=== PATIENT | male | born 1970 | race Hispanic/Latino ===

== ENCOUNTER 2016-03-08 13:49 | Observation (INO) | payer OTHER ==
[~2016-03-08] VITALS: Ht 172.7 cm; Wt 122.5 kg
--- NOTE | 2016-03-08 13:36 | ED CARDIAC/CP/PALPITATIONS ---
History of Present Illness General Chief Complaint: Chest Pain Stated Complaint: CHEST PRESSURE Source: patient, family Exam Limitations: no limitations Vital Signs & Intake/Output Vital Signs & Intake/Output ED Intake and Output 03/10 0000 03/09 1200 Intake Total 60 Output Total Balance 60 Intake, IV 10 Intake, Oral 50 Allergies Coded Allergies: No Known Allergies (03/08/16) Triage Nurses Notes Reviewed? yes Onset: Abrupt Duration: constant Timing: single episode today Quality/Severity: moderate Location: substernal Radiation: no radiation Activities at Onset: none Prior Chest Pain/Card Workup: no prior chest pain, no prior cardiac workup HPI: Patient is a 45-year-old male who currently takes Klonopin to sleep who presents emergency in stating that patient woke up this morning stood up out of bed suddenly became dizzy in which she had acute onset of chest tightness shortness of breath and persistent lightheaded sensation. Patient was brought in by ambulance for 6 hours of persistent chest tightness which patient states that he feels as if he cannot take a deep breath. 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 Denies any fever, chills, headache, arm pain jaw pain nausea vomiting hemoptysis cough leg swelling. Denies any history of PE DVT denies any history of cancer recent travel recent surgery (SANDHYA FIELDS) Reconcile Medications Aspirin (Aspirin*) 81 MG TAB.CHEW 1 TAB PO DAILY HEART HEALTH Clonazepam 1 MG TABLET 1 TAB PO TIDPRN DIRECTED (Reported) (HIPOLITO AVILA,KAHLIL) Past History Travel History Traveled to [place] past 21 day No Medical History Any Pertinent Medical History? see below for history Surgical History Surgical History: non-contributory Family History Hx Contributory? No (SANDHYA FIELDS) Review of Systems Review of Systems Constitutional: Reports: no symptoms. EENTM: Reports: no symptoms. Respiratory: Reports: see HPI, short of breath. Cardiovascular: Reports: see HPI. GI: Reports: no symptoms. Genitourinary: Reports: no symptoms. Musculoskeletal: Reports: no symptoms. Skin: Reports: no symptoms. Neurological/Psychological: Reports: no symptoms. Hematologic/Endocrine: Reports: no symptoms. Immunologic/Allergic: Reports: no symptoms. All Other Systems: Reviewed and Negative (SANDHYA FIELDS) Physical Exam Physical Exam General Appearance: no apparent distress, alert, comfortable Cardiovascular: regular rate/rhythm Comments: Well-developed well-nourished person in no acute distress HEENT: Normal EENT exam, extraocular motion intact, no nystagmus. Pupils equally round and reactive to light and accommodation. Nose is atraumatic. External auditory canal and Tympanic membranes clear. Pharynx normal. No swelling or edema. Neck: Supple, no lymphadenopathy, normal range of motion without pain or tenderness Back: Nontender, no CVA tenderness. Cardiovascular: Regular rate and rhythms no murmurs rubs or gallops, normal JVP Respiratory: Chest nontender. No respiratory distress.breath sounds clear to auscultation bilaterally Abdomen: Soft, nontender nondistended, no appreciable organomegaly. Normal bowel sounds. No ascites Extremity: No edema, no calf tenderness to palpation, normal and equal pulses. Neuro: Alert oriented x3, motor sensory normal, cranial nerves II through XII grossly intact. Skin: No appreciable rash on exposed skin, skin is warm and dry. Psych: Mood and affect is normal, memory and judgment is normal. Core Measures ACS in differential dx? No Severe Sepsis Present: No Septic Shock Present: No (SANDHYA FIELDS) Progress Differential Diagnosis: AMI, aortic dissection, atrial fibrillation, cholecystitis, CHF/pulm edema, costochondritis, hyperkalemia, hypovolemia, hyperthyroid, hyperventilation, intracranial hemorrhage, musculoskeletal pain, myocarditis, pancreatitis, pericarditis, pneumonia, pneumothorax, PSVT, pulmonary embolism, PUD/GERD, PVCs/PACs, respiratory failure, rib fracture, sepsis, unstable angina, V-fib/V-Tach, WPW syndrome Plan of Care: Orders Procedure Date/time Status Heart Healthy Diet 03/09 B Active MAGNESIUM 03/09 06 Active BASIC ELECTROLYTES PLUS BUN&CR 03/09 06 Active Heart Healthy Diet 03/08 D Complete TROPONIN LEVEL 03/08 1999 Active Teach/Educate 03/08 1849 Active Nutritional Intake, Monitor 03/08 1849 Active Isolation 03/08 1849 Active Patient Care Conference 03/08 1849 Active Activity/Ambulation 03/08 1849 Active Vital Signs 03/08 1832 Active Saline Lock 03/08 1713 Active Pathway - chart 03/08 171 Active House Staff 03/08 1713 Active Patient Data 03/[address] in observation 03/08 1625 Active Code Status 03/08 1625 Active Telemetry/Movie Writer 03/08 1355 Active Intake & Output 03/08 1355 Active THYROID STIMULATING HORMONE 03/08 1355 Complete TROPONIN LEVEL 03/08 1355 Complete MAGNESIUM 03/08 1355 Complete FREE T4 03/08 1355 Complete COMPREHENSIVE METABOLIC PANEL 03/08 1355 Complete CBC WITHOUT DIFFERENTIAL 03/08 1355 Complete EKG 03/08 1319 Active VTE Mechanical Prophylaxis 03/08 UNK Active Heat/Cold Therapy 03/08 UNK Active EKG 03/08 UNK Active ECHOCARDIOGRAM 03/08 UNK Active Current Medications Sig/Karsten Start time Last Medication Dose Stop Time Status Admin Docusate Sodium 100 MG BID 03/08 2200 AC (Colace) Polyethylene Glycol 17 GM AT BEDTIME 03/08 2200 AC (Miralax) Senna/Docusate Sodium 1 TAB AT BEDTIME 03/08 2200 AC (Senokot S) Acetaminophen 650 MG Q6P PRN 03/08 1715 AC (Tylenol) Acetaminophen/ 1 TAB Q6P PRN 03/08 1715 AC Hydrocodone Bitart (Vicodin) Diphenhydramine HCl 25 MG Q6P PRN 03/08 1715 AC (Benadryl) Hydromorphone HCl 0.5 MG Q4P PRN 03/08 1715 AC (Dilaudid) Ondansetron HCl 4 MG Q6P PRN 03/08 1715 AC (Zofran) Aspirin 81 MG DAILY 03/08 171 AC (Aspirin) Laboratory Tests 03/08/16 1357: Anion Gap 12, Estimated GFR > 60, BUN/Creatinine Ratio 15.0, Glucose 105 H, Calcium 9.3, Magnesium 1.7, Total Bilirubin 0.4, AST 19, ALT 45, Alkaline Phosphatase 56, Troponin I < 0.01, Total Protein 6.8, Albumin 3.9, Globulin 2.9, Albumin/Globulin Ratio 1.3, TSH 1.880, Free T4 1.08, CBC w Diff NO MAN DIFF REQ, RBC 5.10, MCV 84.4, MCH 29.1, RDW 12.7, MPV 10.1, Gran % 65.4, Lymphocytes % 23.6, Monocytes % 8.3, Eosinophils % 2.0, Basophils % 0.7, Absolute Granulocytes 5.6, Absolute Lymphocytes 2.0, Absolute Monocytes 0.7 H, Absolute Eosinophils 0.2, Absolute Basophils 0.1, PUBS MCHC 34.5 Patient currently is in no apparent distress PERC was scored 0 essentially ruling out pulmonary embolism. Patient was given 325 of aspirin by EMS. Patient will be given nitroglycerin and reevaluated for concerns of angina Orthostatics were measured by nursing staff and noted to me to be negative 03/08/2016 2:27:58 PM-nursing staff does state to me that after 1 tablet of nitroglycerin patient had complete resolution of pain from 5 out of 10 TO NOW 0 out of 10 03/08/2016 3:19:48 PM reevaluation the patient he still had complete resolution of his chest tightness however still complained of dizziness nursing staff does state to me that patient did complain of room spinning sensation was meclizine and scopolamine and normal saline bolus was ordered. Patient does have concerns of angina in which I discussed disposition of admission with Dr. MCMILLAN also evaluate the patient and we will discuss admission with cardiology Patient was made aware of his plan and agrees (MOLLY LIND,SANDHYA) Diagnostic Imaging: Viewed by Me: Radiology Read. CXR Impression: no acute abnormality, no infiltrates Initial ED EKG: SINUS RHYTHM NOTED 74 BPM WITH t-WAVE INVERSIONS NOTED IN LEAD 3 , PEAK t WAVES NOTED IN v2 Comments: PATIENT: DEE DEE ALEX PRESENT AGE: 45 PATIENT ACCOUNT NO: [id number] : 72 LOCATION: [facility] ORDERING PHYSICIAN: SANDHYA LIND SERVICE DATE: 03/08/16 EXAM TYPE: RAD - XRY-CHEST XRAY, PA AND LATERAL EXAMINATION: XR CHEST CLINICAL INFORMATION: 45-year-old with tightness in the chest. COMPARISON: None. TECHNIQUE: PA and lateral views of the chest were obtained. FINDINGS: No significant abnormality is noted involving the heart, lungs, mediastinum, bony thorax, or soft tissues. IMPRESSION: Unremarkable examination. (SANDHYA FIELDS) Departure Departure Disposition: STILL A PATIENT Condition: Stable Clinical Impression Primary Impression: Angina at rest Secondary Impressions: Dizziness Referred to [facility] as new patient No Departure Forms: Customer Survey General Discharge Information Observation Note Spoke With: JEANA MULLEN MD Physician Advisor Notified: ALFREDITO AVILA,VLADISLAV Espinoza Place Patient In: Non-ED OBS Care Area Rationale for Observation: My rational for observation is as follows . Dr. Mullen ACCEPTED the patient for telemetry observation which patient has concerns of rule out ACS, patient requires cardiology consultation, repeat labs, possible stress test, repeat cardiac enzymes telemetry monitoring outpatient treatment at this time due to complete resolution of chest pain after nitroglycerin would be medically harmful (SANDHYA FIELDS) Departure Prescriptions: Current Visit Scripts Aspirin (Aspirin*) 1 TAB PO DAILY #30 TAB PA/DEFENSE TRAVEL ADMINISTRATOR Co-Sign Statement Statement: ED Attending supervision documentation- [] I saw and evaluated the patient. I have also reviewed all the pertinent lab results and diagnostic results. I agree with the findings and the plan of care as documented in the PA's/DEFENSE TRAVEL ADMINISTRATOR's documentation. [X] I have reviewed the ED Record and agree with the PA's/DEFENSE TRAVEL ADMINISTRATOR's documentation. [] Additions or exceptions (if any) to the PAs/DEFENSE TRAVEL ADMINISTRATOR's note and plan are summarized below: [] (HIPOLITO AVILA,KAHLIL) Critical Care Note Critical Care Note Critical Care Time: 30-74 min (SANDHYA FIELDS)
[2016-03-08 14:20] LABS: ABSOLUTE BASOPHIL COUNT 0.1 /CUMM (0.0-0.2); ABSOLUTE EOSINOPHIL COUNT 0.2 /CUMM (0.0-0.7); ABSOLUTE GRANULOCYTE CT 5.6 /CUMM (1.4-6.5); ABSOLUTE MONOCYTE COUNT 0.7 /CUMM (0.10-0.60); BASOPHIL % 0.7 % (0.0-2.0); GRANULOCYTE % 65.4 % (42.2-75.2); MEAN CORPUSCULAR HGB 29.1 PG (27.0-31.0); MEAN CORPUSCULAR HGB CONC 34.5 G/DL (33.0-37.0); MEAN CORPUSCULAR VOLUME 84.4 FL (80.0-94.0); MEAN PLATELET VOLUME 10.1 FL (7.4-10.4); PLATELET COUNT 184 /CUMM (130-400); RBC DISTRIBUTION WIDTH 12.7 % (11.5-14.5); WHITE BLOOD CELL COUNT 8.5 /CUMM (4.8-10.8)
--- NOTE | 2016-03-08 14:41 | RADIOLOGY REPORT ---
EXAMINATION: XR CHEST CLINICAL INFORMATION: 45-year-old with tightness in the chest. COMPARISON: None. TECHNIQUE: PA and lateral views of the chest were obtained. FINDINGS: No significant abnormality is noted involving the heart, lungs, mediastinum, bony thorax, or soft tissues. IMPRESSION: Unremarkable examination.
--- NOTE | 2016-03-08 17:03 | History & Physical ---
DEEPTI BROWN 03/08/16 1702: General Information and HPI MD Statement: I have seen and personally examined DEE DEE ALEX and documented this H&P. The patient is a 45 year old M who presented with a patient stated chief complaint of chest pain and dizziness since morning. Source of Information: patient Exam Limitations: no limitations History of Present Illness: This is a 45-year-old gentleman with no significant past medical history presented to [place] emergency department this afternoon with chief complaint of chest pain and dizziness for 6 hours. According to the patient, he felt dizzy this morning after waking up. Dizziness associated with lightheadedness and he felt like losing balance. Denied any spinning sensation, nausea, vomiting. Denied any syncopal episode. Denied any loss of consciousness or blackout episodes. He also reported chest pain started around 8:00 in the morning which is constant , substernal pressure, 4/10, chest tightness, nonradiating to arm or shoulder. Chest pain is associated with shortness of breath and lightheadedness. However he denied any loss of consciousness, sweating, diaphoresis, racing of heart. No prior history of chest pain, no prior history of heart attacks or stroke. Chest pain was relieved with nitroglycerin in the emergency room. He denied any fever, chills, sick contacts or travel history, cough, sputum production, headache, weakness or sensory changes, numbness or tingling sensation. He denied any nausea, vomiting, abdominal pain, change in bladder or bowel habits. he denied any leg swelling. No significant past medical history except for using Klonopin at nighttime for sleep. Denied any allergies. Denies any smoking, alcohol intake, illicit drug abuse. No significant family history for cardiac events. No hypertension or diabetes in the family. He follows Dr. Pineda primary care doctor. 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 EENTM: Denies: double vision, hearing changes. Cardiovascular: Reports: chest pain. Denies: edema, orthopena, palpitations, peripheral edema, syncope. Respiratory: Denies: cough, hemoptysis, orthopnea, short of breath, sputum production, stridor, wheezing. GI: Denies: abdominal pain, bloating, constipation, diarrhea, nausea, bloody stool, changes in stool, vomiting. Genitourinary: Denies: dysuria, frequency, hematuria, hesitation, nocturia. Musculoskeletal: Denies: back pain, joint pain. Skin: Denies: rash. Neurological/Psychological: Denies: ataxia, confusion, depressed, emotional problems, headache, numbness, paresthesia, tingling, tremors. Exam & Diagnostic Data Last 24 Hrs of Vital Signs/I&O Vital Signs Date Time Temp Pulse Resp B/P Pulse O2 O2 Flow FiO2 Ox Delivery Rate 03/08 1833 97.8 60 20 120/80 95 03/08 1754 97.8 70 16 127/72 97 Room Air 03/08 1415 74 16 122/58 99 Nasal 2.0L Cannula 03/08 1350 97 Room Air 03/08 1321 96.4 76 16 145/83 97 Room Air Intake & Output 03/08 1600 03/08 0800 03/08 0000 Intake Total 0 Output Total Balance 0 Intake, Oral 0 Patient 122.47 kg Weight Physical Exam General Appearance Alert, Oriented X3, Cooperative, No Acute Distress Skin No Rashes, No Breakdown HEENT Atraumatic, PERRLA, Mucous Membr. moist/pink Neck Supple, No JVD Lymphatic Axillary nl, Cervical nl Cardiovascular Regular Rate, Normal S1, Normal S2, No Murmurs Lungs Normal Air Movement Abdomen Normal Bowel Sounds, Soft, No Tenderness Neurological Normal Speech, Strength at 5/5 X4 Ext, Normal Tone, Sensation Intact, Cranial Nerves 3-12 NL Extremities No Clubbing, No Cyanosis, No Edema Vascular Normal Pulses, Pulses Symmetrical Last 24 Hrs of Labs/Raz: Laboratory Tests 03/08/16 2002: Troponin I < 0.01 03/08/16 1357: Anion Gap 12, Estimated GFR > 60, BUN/Creatinine Ratio 15.0, Glucose 105 H, Calcium 9.3, Magnesium 1.7, Total Bilirubin 0.4, AST 19, ALT 45, Alkaline Phosphatase 56, Troponin I < 0.01, Total Protein 6.8, Albumin 3.9, Globulin 2.9, Albumin/Globulin Ratio 1.3, TSH 1.880, Free T4 1.08, CBC w Diff NO MAN DIFF REQ, RBC 5.10, MCV 84.4, MCH 29.1, RDW 12.7, MPV 10.1, Gran % 65.4, Lymphocytes % 23.6, Monocytes % 8.3, Eosinophils % 2.0, Basophils % 0.7, Absolute Granulocytes 5.6, Absolute Lymphocytes 2.0, Absolute Monocytes 0.7 H, Absolute Eosinophils 0.2, Absolute Basophils 0.1, PUBS MCHC 34.5 Diagnostic Data EKG Results Sinus rhythm, rate 74, T wave inversion in lead 3. QTC 413, no acute ST-T wave changes suggestive of ischemia CXR Results Chest x-ray clear Assessment/Plan Assessment: This is a 45-year-old gentleman with no significant past medical history presented to [place] emergency department this afternoon with chief complaint of chest pain and dizziness for 6 hours. He reported chest pain started around 8:00 in the morning which is constant, substernal pressure, 4/10, chest tightness, nonradiating to arm or shoulder. Chest pain is associated with shortness of breath and lightheadedness. Vitals on admission temperature 96.4, heart rate 76, blood pressure 145/83, respiratory rate 16, saturating at 97% on room air. Pertinent labs CBC and BEP with normal. Troponins negative on admission. Thyroid function tests were normal. Chest x-ray was clear. EKG sinus rhythm, rate 74, T wave inversions in V3, QTc interval 413, no acute ST-T wave changes suggestive of ischemia. Patient was given sublingual nitroglycerin in the emergency room and meclizine for dizziness. Problem list 1. Chest pain-rule out acute coronary syndrome 2. Dizziness Chest pain Patient presented with chest pain, substernal, 5/10, chest tightness, nonradiating, lasted for 6 hours, associated with shortness of breath and lightheadedness. Denied any racing of heart, sweating, diaphoresis. Relieved with nitroglycerin in the emergency room. Of note patient has no prior history of chest pain or heart attack in the past. * Admitted to telemetry floor for further monitoring * Monitor vitals every shift * Will rule out acute coronary syndrome * First set of troponins and EKG was negative * Serial EKGs and troponins * Range Conservationist on board * Will follow cardiology recommendations * Started on baby aspirin 81 mg daily * Mild pain pathway Tylenol * Moderate pain pathway Dilaudid * Nitroglycerin for chest pain * follow up echocardiogram * Patient is under 24-hour observation 2. Dizziness Patient complained of chest pain which is associated with the dizziness and lightheadedness. Denied any loss of consciousness, syncopal episodes. Denied any seizures or focal neurological deficits. Denied any ringing sensation, spinning sensation of the room. * Admitted to telemetry for continuous monitoring. * Closely monitor for any arrhythmias * Fall precautions * When necessary meclizine for dizziness. * When necessary zofran For Nausea. * Closely observe for 24 more hours. Patient is full code DVT prophylaxis-alps Regular diet Mild pain pathway Tylenol As Ranked By This Provider Problem List: 1. Angina at rest 2. Dizziness Core Measures/Miscellaneous Acute Coronary Syndrome ACS Diagnosis: No Cerebrovascular Accident CVA/TIA Diagnosis: No Congestive Heart Failure CHF Diagnosis: No Venous Thromboembolism VTE Risk Factors: Acute medical illness, Age > 40, Obesity VTE Prophylaxis Ordered Inpt: Mechanical (ALPS/TEDS) No Mech VTE prophylaxis d/t: No contraindications No VTE Pharm Prophylaxis d/t: No contraindications VTE Diagnosis: No VTE Type: NONE VTE Confirmed by (Test): NONE Severe Sepsis Severe Sepsis Present: No Septic Shock Septic Shock Present: No Miscellaneous Documentation Attending Case Discussed With: JEANA MULLEN MD Primary Care Physician: PATIENT HAS NO PRIMARY CARE DR Patient sees these Specialists none Level of Patient Care: Telemetry JEANA MULLEN MD 03/08/16 1646: General Information and HPI Allergies/Medications Home Med list Aspirin (Aspirin*) 81 MG TAB.CHEW 1 TAB PO DAILY HEART HEALTH Clonazepam 1 MG TABLET 1 TAB PO TIDPRN DIRECTED (Reported) Attending Review Statement Attending Statement Attending Statement: examined this patient, discuss w/resident/PA/CATERING DIRECTOR, agreed w/resident/PA/CATERING DIRECTOR, discussed with family, reviewed EMR data (avail), discussed with nursing, reviewed images, amended to note Attending Assessment/Plan: Agree with house staff notes. The patient is a 45-year-old male with no significant past medical history presenting with chest discomfort and dizziness x6 hours. He felt dizzy in the morning admission upon waking up. No syncope. The chest discomfort began 8:00 a.m., and was a substernal pressure which was a 4/10. This was associated with lightheadedness and dizziness. Review of systems: No fever. No chills. No rash. No tremor. No melena. All other systems are reviewed and noted to be negative. Gen: The patient is in no acute distress HEENT: Normal nose, ears, and oropharynx. Pupils equal bilaterally. Conjunctiva normal. Neck: Supple with no JVD, no masses, and no thyromegaly Lungs: Clear to auscultation with normal respiratory effort Heart: RRR, S1, S2, no murmurs. No peripheral edema, 2+ pulses in the lower extremities bilaterally Abdomen: Soft, nontender, no masses. No hepatomegaly. No splenomegaly Extremities: No clubbing or cyanosis. Normal muscle strength in the upper and lower extremities. Skin: Normal skin turgor with no skin ulcers or lesions noted. Neuro: Cranial nerves intact. Sensation intact Psych: Alert and oriented 3 with appropriate affect Labs: 03/08/16 2002: Troponin I < 0.01 03/08/16 1357: Anion Gap 12, Estimated GFR > 60, BUN/Creatinine Ratio 15.0, Glucose 105 H, Calcium 9.3, Magnesium 1.7, Total Bilirubin 0.4, AST 19, ALT 45, Alkaline Phosphatase 56, Troponin I < 0.01, Total Protein 6.8, Albumin 3.9, Globulin 2.9, Albumin/Globulin Ratio 1.3, TSH 1.880, Free T4 1.08, CBC w Diff NO MAN DIFF REQ, RBC 5.10, MCV 84.4, MCH 29.1, RDW 12.7, MPV 10.1, Gran % 65.4, Lymphocytes % 23.6, Monocytes % 8.3, Eosinophils % 2.0, Basophils % 0.7, Absolute Granulocytes 5.6, Absolute Lymphocytes 2.0, Absolute Monocytes 0.7 H, Absolute Eosinophils 0.2, Absolute Basophils 0.1, PUBS MCHC 34.5 EKG tracing is independently reviewed, and reveals normal sinus rhythm at 74 with nonspecific T-wave abnormality chest x-ray: Negative Assessment: 1. Chest pain, rule out acute coronary syndrome 2. Abnormal EKG 3. Hypertension, with mildly elevated blood pressure on admission 4. Lightheadedness and dizziness, resolved plan: * Monitor on telemetry * check serial troponin * nitroglycerin as needed for chest discomfort
[2016-03-08] MEDS ORDERED: CLONAZEPAM1 M2 PO (17:55)
[2016-03-08 18:33] VITALS: BP 120/80
--- NOTE | 2016-03-08 21:31 | Cons- Cardiology ---
General Information and HPI Consulting Request Date of Consult: 04/28/16 Requested By: JEANA MULLEN MD Reason for Consult: Note entered in error. See H&P from same date. 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
[2016-03-09 00:26] VITALS: BP 130/86
[2016-03-09 08:00] VITALS: BP 124/80
--- NOTE | 2016-03-09 12:51 | PN- Cardiology ---
Subjective Subjective: Feeling better. No further pain. No shortness of breath. No diaphoresis. No palpitations. No lightheadedness or dizziness. Objective Vital Signs and I&Os Vital Signs Date Time Temp Pulse Resp B/P Pulse O2 O2 Flow FiO2 Ox Delivery Rate 03/09 08 97.8 77 18 124/80 96 Room Air 03/09 0026 98.7 77 20 130/86 94 Room Air 03/08 1833 97.8 60 20 120/80 95 03/08 1754 97.8 70 16 127/72 97 Room Air 03/08 1415 74 16 122/58 99 Nasal 2.0L Cannula 03/08 1350 97 Room Air 03/08 1321 96.4 76 16 145/83 97 Room Air Intake & Output 03/09 1600 03/09 0803/09 0000 03/08 1600 03/08 0800 03/08 0000 Intake Total 60 420 0 Output Total 300 Balance 60 120 0 Intake, IV 10 20 Intake, Oral 50 400 0 Number 0 Bowel Movements Output, Urine 300 Patient 270 lb 270 lb Weight Physical Exam: Gen: NAD HEENT: normal Lungs: clear to auscultation, normal resp. effort Heart: RRR, S1, S2, no murmurs Abdomen: Soft, nontender, no masses Extremities: No clubbing, cyanosis, or edema. Neuro: Alert and oriented x 3, cranial nerves intact Current Medications: Current Medications Sig/Karsten Start time Last Medication Dose Route Stop Time Status Admin Acetaminophen 650 MG Q6P PRN 03/08 1714 AC PO Acetaminophen/ 1 TAB Q6P PRN 03/08 171 AC Hydrocodone Bitart PO Aspirin 81 MG DAILY 03/08 1714 AC 03/09 PO 0744 Diphenhydramine HCl 25 MG Q6P PRN 03/08 1715 AC IV Docusate Sodium 100 MG BID 03/08 2200 AC PO Hydromorphone HCl 0.5 MG Q4P PRN 03/08 1715 AC IV Influenza Virus 0.5 ML ONCE ONE 03/08 1914 DC 03/09 Vaccine IM 03/08 191 0748 Meclizine HCl 25 MG ONCE ONE 03/08 1530 DC 03/08 PO 03/08 1531 1536 Meclizine HCl 0 .STK-MED ONE 03/08 1529 DC PO Nitroglycerin 0 .STK-MED ONE 03/08 1405 DC SL Nitroglycerin 0.4 MG ONCE ONE 03/08 1400 DC 03/08 SL 03/08 1401 1406 Ondansetron HCl 4 MG Q6P PRN 03/08 1715 AC IV Polyethylene Glycol 17 GM AT BEDTIME 03/08 220 AC PO Scopolamine HBr 1 PAT ONE ONE 03/08 1530 DC 03/08 TOP 03/08 1531 1536 Senna/Docusate Sodium 1 TAB AT BEDTIME 03/08 220 AC PO Sodium Chloride 1,000 ML BOLUS ONE 03/08 1530 DC 03/08 IV 03/08 1629 1519 Sodium Chloride 1,000 ML BOLUS ONE 03/08 1415 DC 03/08 IV 03/08 1514 1420 Results Last 48 Hrs of Labs/Mics: Laboratory Tests 03/08/162001: Troponin I < 0.01 03/08/16 1357: Anion Gap 12, Estimated GFR > 60, BUN/Creatinine Ratio 15.0, Glucose 105 H, Calcium 9.3, Magnesium 1.7, Total Bilirubin 0.4, AST 19, ALT 45, Alkaline Phosphatase 56, Troponin I < 0.01, Total Protein 6.8, Albumin 3.9, Globulin 2.9, Albumin/Globulin Ratio 1.3, TSH 1.880, Free T4 1.08, CBC w Diff NO MAN DIFF REQ, RBC 5.10, MCV 84.4, MCH 29.1, RDW 12.7, MPV 10.1, Gran % 65.4, Lymphocytes % 23.6, Monocytes % 8.3, Eosinophils % 2.0, Basophils % 0.7, Absolute Granulocytes 5.6, Absolute Lymphocytes 2.0, Absolute Monocytes 0.7 H, Absolute Eosinophils 0.2, Absolute Basophils 0.1, PUBS MCHC 34.5 Assessment/Plan Assessment/Plan Assessment: 1. Chest pain, rule out for mitral infarction 2. Abnormal EKG 3. Mildly elevated blood pressure on admission, now normal 4. Lightheadedness and dizziness, resolved Plan: * Discharge to home * Stress echo as outpatient * Follow up in the office in one week. * Aspirin 81 mg daily. This can be discontinued after the stress test if the stress test is normal. Continue telemetry? No
[2016-03-09] MEDS ORDERED: ASPIRIN81 M4 PO (12:55)
--- NOTE | 2016-03-09 13:07 | Patient Discharge Instructions ---
Discharge Instructions General Discharge Information You were seen/treated for: Chest pain Watch for these problems: Persistent chest pain or pressure Difficulty breathing Nausea or vomiting Sudden cold sweat or dizziness Black or bloody bowel movement Special Instructions: We are giving you a referral to primary care physician Dr. Benedict. Please see her within one week of discharge. Please follow up with resolution rep Dr. Moctezuma for your heart in one week of discharge. You will be scheduled for a stress test as outpatient. You can discontinue the aspirin if the stress test is normal. Diet Recommended Diet: Heart Healthy Activity Full Activity/No Limits: Yes Acute Coronary Syndrome Inclusion Criteria At DC or during hospital stay patient has or had the following: ACS DIAGNOSIS No Discharge Core Measures Meds if any: Prescribed or Continued at Discharge Meds if any: NOT Prescribed or Continued at Discharge Congestive Heart Failure Inclusion Criteria At DC or during hospital stay patient has or had the following: CHF DIAGNOSIS No Discharge Core Measures Meds if any: Prescribed or Continued at Discharge Meds if any: NOT Prescribed or Continued at Discharge Cerebrovascular accident Inclusion Criteria At DC or during hospital stay patient has or had the following: CVA/TIA Diagnosis No Discharge Core Measures Meds if any: Prescribed or Continued at Discharge Meds if any: NOT Prescribed or Continued at Discharge Venous thromboembolism Inclusion Criteria VTE Diagnosis No VTE Type NONE VTE Confirmed by (Test) NONE Discharge Core Measures - Per Current guidelines, there needs to be overlap - treatment for the first 5 days of Warfarin therapy. - If discharged on Warfarin prior to 5 days of - overlap therapy, the patient will need to be - assessed for post discharge needs including - *Post discharge parental anticoagulation - *Warfarin and/or parental anticoagulation education - *Follow up date to check INR post discharge At least 5 days overlap therapy as Inpatient No Meds if any: Prescribed or Continued at Discharge Note: Overlap Therapy is Warfarin and Anticoagulant Meds if any: NOT Prescribed or Continued at Discharge
--- NOTE | 2016-03-09 13:20 | PN- Housestaff ---
Subjective Follow-up For: Chest pain Rule out ACS Dizziness Tele-Events Since Last Visit: NSR. HR 70-80s. No events. Subjective: No acute events overnight. Patient seen and examined this morning. He feels good and has no complaints. He denies chest pain, palpitations, shortness of breath, dizziness or lightheadedness. Review of Systems Constitutional: Reports: see HPI. Objective Last 24 Hrs of Vital Signs/I&O Vital Signs Date Time Temp Pulse Resp B/P Pulse O2 O2 Flow FiO2 Ox Delivery Rate 03/09 799 97.8 77 18 124/80 96 Room Air 03/09 0026 98.7 77 20 130/86 94 Room Air Intake & Output 03/09 1600 03/09 0800 03/09 0000 Intake Total 60 420 Output Total 300 Balance 60 120 Intake, IV 10 20 Intake, Oral 50 400 Number 0 Bowel Movements Output, Urine 300 Patient 122.47 kg Weight Physical Exam General Appearance: Alert, Oriented X3, No Acute Distress HEENT: Mucous Membr. moist/pink Cardiovascular: Regular Rate, Normal S1, Normal S2, No Murmurs, Gallops, Rubs Lungs: Clear to Auscultation, Normal Air Movement Abdomen: Soft, No Tenderness, Positive Bowel Sounds Extremities: No Clubbing, No Cyanosis, No Edema Current Medications: Current Medications Sig/Karsten Start time Last Medication Dose Route Stop Time Status Admin Acetaminophen 650 MG Q6P PRN 03/08 1714 DCD PO Acetaminophen/ 1 TAB Q6P PRN 03/08 1714 DCD Hydrocodone Bitart PO Aspirin 81 MG DAILY 03/08 171 DCD 03/09 PO 0744 Diphenhydramine HCl 25 MG Q6P PRN 03/08 1714 DCD IV Docusate Sodium 100 MG BID 03/08 2199 DCD PO Hydromorphone HCl 0.5 MG Q4P PRN 03/08 1714 DCD IV Ondansetron HCl 4 MG Q6P PRN 03/08 1714 DCD IV Polyethylene Glycol 17 GM AT BEDTIME 03/08 2199 DCD PO Senna/Docusate Sodium 1 TAB AT BEDTIME 03/08 2199 DCD PO Assessment/Plan Assessment: 46 y/o M with no significant PMHx who presented with chest pain associated with shortness of breath and lightheadedness. #Chest pain: ACS unlikely given troponins x2 <0.01 and EKG with T wave inversion in lead [address]-T wave abnormalities suggestive of ischemia. Symptoms have completely resolved. * Discharge home with instructions to follow up with Dr. Moctezuma in one week of discharge. * Stress test as outpatient. * Continue taking daily low dose aspirin on discharge, which can be discontinued if the stress test is normal. Diet: Heart Healthy DVT PPx: ALPs CODE: FULL Problem List: 1. Chest pain Pain Ratin Pain Location: N/A Pain Goal: Remain pain free Pain Plan: N/A Tomorrow's Labs & Rationales: None Discharge Plan Discharge Disposition: home Anticipated Discharge (Day): today
--- NOTE | 2016-03-10 09:55 | ECHOCARDIOGRAM REPORT ---
DEE DEE ALEX Age: 46 : 1970 Gender: M Exam Date: 03/09/2016 11:04 Exam Location: [address] Ht (in): 68 Wt (lb): 270 BSA: 2.48 BP: / Ordering Physician: FREDDY ALVAREZ MD Referring Physician: Andrew Moctezuma MD Technologist: Joselin Barbour [facility] Room Number: 180-01 Indications: CHEST PAIN Rhythm: Sinus Technical Quality: Good FINDINGS Left Ventricle Normal size left ventricle. Normal left ventricular wall thickness. Normal left ventricular ejection fraction visually estimated at > 60%. Normal left ventricular wall motion. Right Ventricle Normal right ventricular size and function. Right Atrium Normal right atrial size. Left Atrium Normal left atrial size. Mitral Valve Structurally normal mitral valve. Trace mitral regurgitation. Aortic Valve Structurally normal trileaflet aortic valve. No aortic stenosis. No aortic regurgitation. Tricuspid Valve Trace tricuspid regurgitation. No evidence of pulmonary hypertension. Pulmonic Valve Pulmonic valve not well visualized, grossly normal. Pericardium Small pericardial effusion. No echo evidence of tamponade. Great Vessels Normal size aortic root. CONCLUSIONS Normal size left ventricle. Normal left ventricular ejection fraction visually estimated at > 60%. Trace mitral regurgitation. Small pericardial effusion. Andrew Moctezuma M.D. (Electronically Signed) Final Date: 10 March 2016 09:55 MEASUREMENTS (Male / Female) Normal Values 2D ECHO LV Diastolic Diameter PLAX 4.9 cm 4.2 - 5.9 / 3.9 - 5.3 cm LV Systolic Diameter PLAX 2.4 cm 2.1 - 4.0 cm LV Fractional Shortening PLAX 51.0 % 25 - 46 % LV Ejection Fraction 2D Teich 82.1 % IVS Diastolic Thickness 1.2 cm LVPW Diastolic Thickness 1.1 cm LV Relative Wall Thickness 0.5 RV Internal Dim ED PLAX 2.3 cm 1.9 - 3.8 cm LVOT Diameter 2.1 cm Aortic Root Diameter 3.1 cm LA Systolic Diameter LX 3.8 cm 3.0 - 4.0 / 2.7 - 3.8 cm LA Volume 29.0 cm 18 - 58 / 22 - 52 cm Ascending Aorta Diameter 2.9 cm DOPPLER AV Peak Velocity 134.0 cm/s AV Peak Gradient 7.2 mmHg AV Mean Velocity 96.6 cm/s AV Mean Gradient 4.0 mmHg AV Velocity Time Integral 28.2 cm LVOT Peak Velocity 114.0 cm/s LVOT Peak Gradient 5.2 mmHg LVOT Mean Velocity 74.9 cm/s LVOT Mean Gradient 3.0 mmHg LVOT Velocity Time Integral 23.2 cm LVOT Stroke Volume 80.4 cm AV Area Cont Eq vti 2.8 cm AV Area Cont Eq pk 2.9 cm MV Peak Velocity 108.0 cm/s MV Peak Gradient 4.7 mmHg MV Mean Velocity 53.2 cm/s MV Mean Gradient 1.0 mmHg Mitral E Point Velocity 113.0 cm/s Mitral A Point Velocity 71.6 cm/s Mitral E to A Ratio 1.6 MV PHT Velocity 116.0 cm/s MV Deceleration [place] 565.0 cm/s MV Pressure Half Time 61.6 ms MV Area PHT 3.6 cm MV Deceleration Time 176.0 ms TR Peak Velocity 252.0 cm/s TR Peak Gradient 25.4 mmHg Right Atrial Pressure 5.0 mmHg Pulmonary Artery Systolic Pressu 30.4 mmHg Right Ventricular Systolic Press 30.4 mmHg PV Peak Velocity 131.0 cm/s PV Peak Gradient 6.9 mmHg PV Mean Velocity 81.8 cm/s PV Mean Gradient 3.0 mmHg PV Velocity Time Integral 30.6 cm LV E' Lateral Velocity 9.2 cm/s Mitral E to LV E' Lateral Ratio 12.3 LV E' Septal Velocity 9.7 cm/s Mitral E to LV E' Septal Ratio 11.7
== END 2016-03-09 13:55 ==
LOC: ERH 13:49 → ERHI 16:25 → 1NO 18:23
PROVIDERS: Physician Assistant; ADMIT Internal Medicine Cardiovascular Disease
DX: R07.9 Chest pain, unspecified (principal); R42 Dizziness and giddiness; Z23 Encounter for immunization
CPT/HCPCS: 2000; 6020; 82436; 93005; 93010; 93306; 96360; 99291; G0008; G0378; J1200; J2405; J3490; Q2036